=== PATIENT | female | born 1970 | race Caucasian/White ===

== ENCOUNTER 2022-02-03 00:18 | Outpatient (CLI) | payer BC, SELFPAY ==
--- NOTE | 2022-02-03 08:15 | DI.MAMMO_ITS ---
Exam(s) MAMMO SCREENING EXAM: MAMMO SCREENING CLINICAL HISTORY: SCREENING,Z12.31. TECHNIQUE: Bilateral full field digital CC and MLO mammographic images were obtained with 3D tomosyn thesis and utilizing computer aided detection (CAD). COMPARISON: Prior outside mammograms were reviewed, most recent being 2013.. This mammogram is submitted me for interpretation 02/09/2022 FINDINGS: The fibroglandular tissue pattern is moderately dense. The upper outer quadrant the left breast there is a concerning area of architectural distortion spicu lation approximately 8-9 cm from the nipple, lateral of center on the CC view. This is a suspicious region. Further imaging required. In the opposite-right breast there is a partially calcified asymmetric nodular density the CC view me asuring approximately 11 by 9 millimeters and approximately 4 cm in from the nipple. Further imaging required. No skin thickening-traction. IMPRESSION: 1. In the left breast there is a concerning area of architectural distortion/spiculation towards the upper outer quadrant which is suspicious for malignancy. Additional imaging including spot compressi on and ultrasound recommended. 2. Nodular density also noted in the opposite-right breast as described above. Additional spot compr ession view and ultrasound recommended. 3. If there is any problem scheduling this patient for diagnostic follow-up mammogram and bilateral c omplete breast ultrasound within the next few days then please contact the radiology department manag er. BI-RADS Category 0 - Assessment Incomplete: Need additional imaging evaluation Breast Density - Category C - Heterogeneously dense Breast density Category C or D implies that the patient has dense breast tissue. Dense breast tissue can make it harder to find cancer on a mammogram. Dense breast tissue is also associated with an incr eased risk of breast cancer. This information about the result of the mammogram report was provided to the patient to raise their awareness. Use this report when you speak with the patient about their risks for breast cancer, which includes their family history. At that time, you may recommend additional screening tests (Ultrasoun d or MRI) as these tests may add significant information. A negative radiographic report should not delay biopsy if a dominant or clinically suspicious mass is present. Up to ten percent of cancers are not identified on mammography. A negative report may reinforce clinical impression. Adenosis and dense breasts may obscure an underlying neoplasm. False positive reports average 6 to 10%. Patient will receive a letter notifying them of these results.
== END 2022-02-03 00:38 ==
LOC: DI 00:18
PROVIDERS: Visit Provider Physician Assistant
DX: Z12.31 Encounter for screening mammogram for malignant neoplasm of breast (principal); R92.8 Other abnormal and inconclusive findings on diagnostic imaging of breast
CPT/HCPCS: 77063; 77067

== ENCOUNTER 2022-02-14 01:29 | Outpatient (CLI) | payer BC, SELFPAY ==
--- NOTE | 2022-02-14 | DI.US_ITS ---
Exam(s) US BREAST LT COMPLETE US BREAST RT COMPLETE MG MAMMO SCREEN CALL BACK BI EXAM: MG MAMMO SCREEN CALL BACK BI and ultrasound breast bilateral complete CLINICAL HISTORY: F/U MAMMO, LUOQ ARCHITECTURAL DISTORTION,RT CALCIFIED ASYMMETRIC NODULAR. TECHNIQUE: Craniocaudal and mediolateral oblique Full Field Digital Mammography views of the bilater al breast with Computer Aided Diagnosis followed by Tomosynthesis and bilateral breast ultrasound. COMPARISON: Comparison is made with prior examinations. FINDINGS: Mammography/Tomosynthesis: Masses/Architectural Distortion: There is a persistent area of architectural distortion in the upper outer quadrant of the left breast. No associated microcalcifications are seen. In the right breast, there does appear to be a well-circumscribed lobulated nodule in the lower inner quadrant. It measu res approximately 1.1 cm. There are 2 punctate associated calcifications. Microcalcifictions: No suspicious pleomorphic-type are seen. Skin Thickening/Nipple Retraction: None. Bilateral complete breast US: Echotexture: Normal appearance of the glandular tissue. Shadowing: No suspicious foci. Cyst: None. Solid lesions: In the right breast, there are mildly dilated ducts seen in the retroareolar region. No cystic or solid masses are seen sonographically. In the left breast, at the 2 o'clock position of the left breast 5 cm from the nipple there appears to be a hypoechoic mass measuring 1.1 x 0.9 cm. This appears to correspond in location to the mammographic abnormality. There is also a hypoechoic i rregular area at the 12 o'clock position 2 cm from the nipple. This may represent dense fibroglandul ar tissue but a mass may also be considered. Both of these area should be biopsied and evaluated as to whether they correspond to the architectural distortion on the mammogram. Ductal dilation: None. IMPRESSION: 1. Area of architectural distortion in the upper outer quadrant of the left breast suspicious for mal ignancy. There are 2 abnormal areas seen in the left breast, 1 at the 12 o'clock position 2 cm from the nipple and the 2nd at the 2 o'clock position 5 cm from the nipple. All of these area should be b iopsied and evaluated for the correlation with the mammographic abnormality. 2. Well-circumscribed lobulated 1.1 cm nodule in the lower inner quadrant of the right breast. No so nographic correlate is seen. Six-month follow-up mammogram may be obtained for further evaluation. Alternatively, biopsy may be obtained. 3. The findings were discussed with the patient on the date of the examination. BI-RADS Category 5 - Highly Suggestive of Malignancy: Biopsy recommended Breast Density - Category C - Heterogeneously dense Breast density Category C or D implies that the patient has dense breast tissue. Dense breast tissue can make it harder to find cancer on a mammogram. Dense breast tissue is also associated with an incr eased risk of breast cancer. This information about the result of the mammogram report was provided to the patient to raise their awareness. Use this report when you speak with the patient about their risks for breast cancer, which includes their family history. At that time, you may recommend additional screening tests (Ultrasoun d or MRI) as these tests may add significant information. A negative radiographic report should not delay biopsy if a dominant or clinically suspicious mass is present. Up to ten percent of cancers are not identified on mammography. A negative report may reinforce clinical impression. Adenosis and dense breasts may obscure an underlying neoplasm. False positive reports average 6 to 10%. Patient will receive a letter notifying them of these results.
== END 2022-02-14 01:49 ==
LOC: DI 01:29
PROVIDERS: Visit Provider Physician Assistant
DX: R92.8 Other abnormal and inconclusive findings on diagnostic imaging of breast (principal)
CPT/HCPCS: 76642; 77063; 77067

== ENCOUNTER 2023-01-26 02:42 | Outpatient (CLI) | payer BC, SELFPAY ==
[2023-01-26 10:02] LABS: Abs Immature Grans 0.01 10^3/uL (0.0-0.06); Absolute Basophil Count 0.08 10^3/uL (0.0-0.2); Absolute Eosinophil Count 0.18 10^3/uL (0.0-0.7); Absolute Lymphocyte Count 0.65 10^3/uL (1.2-3.4); Absolute Monocyte Count 0.31 10^3/uL (0.1-0.8); Absolute Neutrophil Count 3.91 10^3/uL (1.2-6.7); Basophils % 1.6; Eosinophils % 3.5; HCT 36.2 % (36.0-46.0); HGB 11.2 g/dL (11.2-15.7); Immature Grans % 0.2; Lymphocytes % 12.6; MCH 27.1 pg (27.0-33.0); MCHC 30.9 % (32.0-36.0); MCV 88 fL (80-95); MPV 9.4 fL (8.0-11.0); Neutrophils % 76.1; Platelet Count 272 10^3/uL (130-400); RBC 4.13 10^6/uL (3.93-5.22); RDW 13.6 % (11.7-14.6); RDW-SD 43.3 fL; WBC 5.14 10^3/uL (4.4-10.8)
[2023-01-26 10:37] LABS: ALT 24 U/L (14-59); AST 16 U/L (15-37); Albumin 3.6 g/dL (3.4-5.0); Alkaline Phosphatase 71 U/L (46-116); Anion Gap 5.3 mmol/L (3-11); BUN 20 mg/dL (7-18); Bilirubin, Total 0.8 mg/dL (0.2-1.0); CO2 32.7 mmol/L (21.0-32.0); CREATININE 1.1 mg/dL (0.55-1.02); Calcium 9.6 mg/dL (8.5-10.1); Calculated LDL 154 mg/dL (<100); Chloride 105 mmol/L (98-107); Cholesterol 266 mg/dL (<200); Estimated GFR 60.46 (mL/min/1.73m2); Ferritin 9 ng/mL (8-252); Glucose 111 mg/dL (74-106); HDL Cholesterol 89 mg/dL (40-60); Potassium 4.3 mmol/L (3.5-5.1); Sodium 143 mmol/L (136-145); Total Protein 7.4 g/dL (6.4-8.2); Triglyceride 115 mg/dL (<150)
[2023-01-26 11:04] LABS: Iron 59 ug/dL (50-170); Total Iron Binding Capacity 423 ug/dL (250-450); Transferrin Sat 14 % (15-50)
== END 2023-01-26 02:43 | disposition home or self-care (01) ==
LOC: LBO 02:42
PROVIDERS: PCP Family Medicine; Referring Provider Family Medicine; Visit Provider Family Medicine
DX: I10 Essential (primary) hypertension (principal); D50.8 Other iron deficiency anemias; K91.89 Other postprocedural complications and disorders of digestive system
CPT/HCPCS: 36415; 80053; 80061; 82728; 83540; 83550; 85025

== ENCOUNTER 2023-12-11 01:08 | Outpatient (CLI) | payer BC, SELFPAY ==
--- NOTE | 2023-12-11 11:21 | DI.RAD_ITS ---
Exam(s) XR CERVICAL SPINE COMP 4-5V EXAM: XR CERVICAL SPINE COMP 4-5V CLINICAL HISTORY: 6 months of neck pain,m54.2. TECHNIQUE: 2D digital imaging was performed. Six images were obtained. AP, odontoid, lateral and fly ateral oblique images were obtained. COMPARISON: No exams were available for comparison FINDINGS: The odontoid is intact. The lateral masses are well aligned. There is normal alignment of the cervi wtyla spine. There is mild disc space narrowing at C6-C7. Small endplate osteophytes are seen at multi ple levels of the cervical spine. No acute fracture or subluxation is present. There is mild narrowi ng of the neural foramen on the right at C6-C7 and on the left at C7-T1. The cervical thoracic juncti on is well maintained. The prevertebral soft tissues are unremarkable. Lung apices are clear. IMPRESSION: Mild degenerative changes seen in the cervical spine. DATA REPOSITORY: RADIATION DOSE DELIVERED:
== END 2023-12-11 01:28 ==
LOC: DI 01:08
PROVIDERS: PCP Family Medicine; Visit Provider Family Medicine
DX: M50.023 Cervical disc disorder at C6-C7 level with myelopathy (principal)
CPT/HCPCS: 72050

== ENCOUNTER 2024-01-10 01:42 | Outpatient (CLI) | payer BC, SELFPAY ==
--- NOTE | 2024-01-10 08:45 | DI.MRI_ITS ---
Exam(s) MR CERVICAL SPINE WO EXAM: MR CERVICAL SPINE WO CLINICAL HISTORY: Degenerative changes seen on xr,CERVICAL SPINE DEGENERATION, TECHNIQUE: Multiplanar multisequence MRI of the cervical spine was performed without intravenous con trast. COMPARISON: CR XR CERVICAL SPINE COMP 4-5V from 12/11/2023 FINDINGS: BONES: Vertebral body heights are maintained. Alignment is normal. Bone marrow signal intensity is wi thin normal limits. CERVICAL CORD: Craniovertebral junction is unremarkable. The cervical cord is normal size and signal intensity. SOFT TISSUES: Unremarkable. C2-3: No disc herniation or bulge is identified. No evidence of neural foraminal narrowing. No signi ficant central canal stenosis. C3-4: No disc herniation or bulge is identified. No evidence of neural foraminal narrowing. No signif icant central canal stenosis. C4-5: No disc herniation or bulge is identified. No evidence of neural foraminal narrowing. No signif icant central canal stenosis. C5-6: Minimal disc bulging and small endplate osteophytes. No evidence of neural foraminal narrowing . No significant central canal stenosis. C6-7: Mild loss of disc height. Small endplate osteophytes. Mild right neural foraminal narrowing. No significant central canal stenosis. C7-T1: No disc herniation or bulge is identified. No evidence of neural foraminal narrowing. No signi ficant central canal stenosis. IMPRESSION: Mild degenerative disc changes C5-6 and C6-7. Mild right neural foraminal narrowing C6-7. No eviden ce of focal disc herniation at any level. DATA REPOSITORY:
== END 2024-01-10 02:02 ==
LOC: DI 01:43
PROVIDERS: PCP Family Medicine; Visit Provider Family Medicine
DX: M47.812 Spondylosis without myelopathy or radiculopathy, cervical region (principal)
CPT/HCPCS: 72141

== ENCOUNTER 2024-07-16 05:04 | Outpatient (CLI) | payer BC, SELFPAY ==
[2024-07-16 13:23] LABS: Anion Gap 9.9 mmol/L (3-11); BUN 18 mg/dL (7-18); CO2 31.1 mmol/L (21.0-32.0); CREATININE 1.2 mg/dL (0.55-1.02); Calcium 8.4 mg/dL (8.5-10.1); Calculated LDL 94 mg/dL (<100); Chloride 100 mmol/L (98-107); Cholesterol 253 mg/dL (<200); Estimated GFR 53.79 (mL/min/1.73m2); Glucose 155 mg/dL (74-106); HDL Cholesterol 91 mg/dL (>or=50); Potassium 3.7 mmol/L (3.5-5.1); Sodium 141 mmol/L (136-145); Triglyceride 343 mg/dL (<150)
== END 2024-07-16 05:05 | disposition home or self-care (01) ==
LOC: LBO 05:04
PROVIDERS: PCP Family Medicine; Referring Provider Family Medicine; Visit Provider Family Medicine
DX: I10 Essential (primary) hypertension (principal)
CPT/HCPCS: 36415; 80048; 80061

== ENCOUNTER 2024-08-25 01:47 | Outpatient (CLI) | payer BC, SELFPAY ==
[2024-08-25 08:15] LABS: HCT 34.2 % (36.0-46.0); HGB 10.2 g/dL (11.2-15.7); MCH 23.3 pg (27.0-33.0); MCHC 29.8 % (32.0-36.0); MCV 78 fL (80-95); MPV 9.8 fL (8.0-11.0); Platelet Count 288 10^3/uL (130-400); RBC 4.38 10^6/uL (3.93-5.22); RDW 15.8 % (11.7-14.6); RDW-SD 44.6 fL; WBC 4.50 10^3/uL (4.4-10.8)
[2024-08-25 09:35] LABS: Iron 32 ug/dL (50-170); Total Iron Binding Capacity 502 ug/dL (250-450); Transferrin Sat 6 % (15-50)
[2024-08-25 11:11] LABS: Anion Gap 7.7 mmol/L (3-11); BUN 30 mg/dL (7-18); CO2 31.3 mmol/L (21.0-32.0); Calcium 9.4 mg/dL (8.5-10.1); Chloride 102 mmol/L (98-107); Estimated GFR 53.79 (mL/min/1.73m2); Glucose 82 mg/dL (74-106); Potassium 4.1 mmol/L (3.5-5.1); Sodium 141 mmol/L (136-145)
== END 2024-08-25 01:48 | disposition home or self-care (01) ==
LOC: LBO 01:47
PROVIDERS: PCP Family Medicine; Referring Provider Family Medicine; Visit Provider Family Medicine
DX: K91.89 Other postprocedural complications and disorders of digestive system (principal); D50.8 Other iron deficiency anemias; Z86.2 Personal history of diseases of the blood and blood-forming organs and certain disorders involving the immune mechanism; R73.03 Prediabetes
CPT/HCPCS: 36415; 80048; 85027; 83540; 83550

== ENCOUNTER 2024-09-29 03:36 | Outpatient (RCR) | payer BC, SELFPAY ==
[2024-09-15] MEDS: Normal Saline Flush 10 ML SYR IVP (12:41)
[2024-09-15] MEDS: IRON SUCROSE COMPLEX 300 MG in Normal Saline 250 ML 176.667 MG IVPB (12:52)
[2024-09-22 12:31] VITALS: BP 109/75; PULSE 78; RESP 18; TEMP 35.7; O2SAT 98
[2024-09-22] MEDS: Normal Saline Flush 10 ML SYR IVP (12:46)
[2024-09-22] MEDS: IRON SUCROSE COMPLEX 300 MG in Normal Saline 250 ML 176.667 MG IVPB (12:46)
[2024-09-29] MEDS: IRON SUCROSE COMPLEX 300 MG in Normal Saline 250 ML 176.667 MG IVPB (13:02)
[2024-09-29] MEDS: Normal Saline Flush 10 ML SYR IVP (13:03)
== END 2024-10-05 23:59 | disposition home or self-care (01) ==
LOC: INF 03:36
PROVIDERS: PCP Family Medicine; Visit Provider Family Medicine
DX: D50.8 Other iron deficiency anemias (principal)
CPT/HCPCS: 96365; 96366; J1756

== ENCOUNTER 2024-10-20 09:56 | Outpatient (CLI) | payer BC, SELFPAY ==
[2024-10-20 14:40] LABS: Abs Immature Grans 0.01 10^3/uL (0.0-0.06); HCT 40.4 % (36.0-46.0); HGB 12.4 g/dL (11.2-15.7); Immature Grans % 0.2 %; MCH 26.1 pg (27.0-33.0); MCHC 30.7 % (32.0-36.0); MCV 85 fL (80-95); MPV 9.6 fL (8.0-11.0); Platelet Count 277 10^3/uL (130-400); RBC 4.76 10^6/uL (3.93-5.22); RDW 21.6 % (11.7-14.6); RDW-SD 66.5 fL; WBC 4.32 10^3/uL (4.4-10.8)
[2024-10-20 15:12] LABS: Anisocytosis 2+; Hypochromasia 1+; Microcytosis 1+
[2024-10-20 17:39] LABS: Iron 57 ug/dL (50-170); Total Iron Binding Capacity 344 ug/dL (250-450); Transferrin Sat 17 % (15-50)
== END 2024-10-20 09:57 | disposition home or self-care (01) ==
LOC: LBO 09:56
PROVIDERS: PCP Family Medicine; Visit Provider Family Medicine
DX: K91.89 Other postprocedural complications and disorders of digestive system (principal); D50.8 Other iron deficiency anemias
CPT/HCPCS: 36415; 83540; 83550; 85025